=== PATIENT | female | born 1990 | race Caucasian/White ===

== ENCOUNTER 2023-11-06 11:57 | Outpatient (RCR) | payer BC, SELFPAY ==
[2023-11-06 12:49] VITALS: BP 115/71; PULSE 88
== END 2024-02-04 23:59 | disposition home or self-care (01) ==
LOC: ANHOBOP 11:57
PROVIDERS: Visit Provider Obstetrics & Gynecology
DX: O36.8130 Decreased fetal movements, third trimester, not applicable or unspecified (principal); Z3A.29 29 weeks gestation of pregnancy
CPT/HCPCS: 59025

== ENCOUNTER 2023-12-10 20:38 | Observation (INO) | payer BC, SELFPAY ==
--- NOTE | 2023-12-10 20:48 | OBADM ---
This patient, Jorge Medrano, admitted to the OB room OB Post 113 for observation. Patient/family oriented to hospital policies and general routines including ID bracelet, bed and alarms, visiting hours, pain management, procedures, bathroom and other care routines, personal items, smoking policy, room service/diet, and visiting hours. Patient/Family are encouraged to report perceived risks to care and to ask questions if they do not understand what they are told or what they should do.
[2023-12-10 21:15] VITALS: BP 128/76; PULSE 86
--- NOTE | 2023-12-12 11:30 | PM.OBTRLD ---
OB - Triage/Final Diagnosis Visit Information Reason for evaluation: threatened labor Comments/Additional reasons for admission: I have assessed the risk for this patient, Jorge Medrano, and determined that she would benefit from observation care.
== END 2023-12-10 21:26 ==
PROVIDERS: Admitting Provider Obstetrics & Gynecology; Visit Provider Obstetrics & Gynecology
DX: O47.03 False labor before 37 completed weeks of gestation, third trimester (principal); Z3A.34 34 weeks gestation of pregnancy
CPT/HCPCS: G0378; G0379

== ENCOUNTER 2024-01-22 10:50 | Outpatient (CLI) | payer BC, SELFPAY ==
[2024-01-22 11:14] LABS: Hematocrit 36.1 % (37.0-47.0); Hemoglobin 12.3 g/dL (12.0-15.0); Mean Corpuscular HGB Conc 34.1 g/dl (32-36); Mean Corpuscular Hemoglobin 31.5 pg (26-34); Mean Corpuscular Volume 92.6 fl (80-100); Mean Platelet Volume 11.2 fl (7.4-10.4); Platelet Count Result 184 k/mm3 (150-375); Red Cell Distribution Width 14.4 % (11.5-14.5); White Blood Count 14.4 K/mm3 (4.5-10.0)
[2024-01-23 03:42] LABS: Rapid Plasma Reagin Non-Reactive (NonReactive)
== END 2024-01-22 10:51 | disposition home or self-care (01) ==
LOC: ANHLAB 10:53
PROVIDERS: PCP Registered Nurse; Visit Provider Obstetrics & Gynecology
DX: Z01.818 Encounter for other preprocedural examination (principal)
CPT/HCPCS: 36415; 85027; 86592; 86850; 86900; 86901

== ENCOUNTER 2024-01-24 05:32 | Inpatient (IN) | payer BC, SELFPAY ==
--- NOTE | 2024-01-23 22:29 | HP_ITS ---
This report was moved to the correct visit on 01/24/2024. The original report was signed by Tan Simental MD on 01/23/24 [id number]. H&P: HPI History of Present Illness Date/Time: 01/23/24 22:21 Chief Complaint: Large baby Narrative: 33 y/o G1 at 40 6/7 weeks gestation here for primary for suspected macrosomia. EFW on ultrasound 01/21 was 5434 g (12lbs), with cephalic presentation and normal ADOLFO. I have offered her a primary , according to ACOG guidelines. GBS neg. complicated by hypothyroidism, well- controlled, and by obesity. Weight gain in this has been 93 lbs. GCT was normal at 111. She has good movement, and rare contractions. Review of Systems Review of Systems: All systems reviewed & are unremarkable except as noted in HPI and below PMFSH Past Medical History Medical History (Updated 01/23/24 @ 22:27 by Tan Simental MD) History of hypothyroidism Obesity affecting Family History Family History Grandparent Family history of Alzheimer's disease Family history of multiple sclerosis Father Diabetes mellitus Hernia Sibling ADHD Sibling Depression Sibling Schizophrenic disorder Other Family history of alcoholism Family history of lung cancer Social History Social History Smoking status: Former smoker Second hand tobacco smoke exposure: Yes Smoking end date: 11/29/16 Alcohol intake: current Drinks per week: 2 Substance use: never Substance use type: does not use Living arrangements: alone Occupation/Education: occupation Gender identity (if verbalized by the patient): Female Spiritual care concerns: No Meds Home Medications and Allergies Home Medications Medication Instructions Recorded Confirmed Type Complete 1 tab-cap PO DAILY 12/28/23 12/28/23 History ergocalciferol (vitamin D2) 1,000 2,000 unit PO DAILY 12/28/23 12/28/23 History unit capsule levothyroxine 112 mcg tablet 112 mcg PO DAILY 12/28/23 12/28/23 History Allergies Allergy/AdvReac Type Severity Reaction Status Date / Time poison evonne extract Allergy Mild rash Verified 12/28/23 13:30 Exam Const: Orientation/consciousness: patient oriented x3 Other: Well-developed, well-nourished female in no acute distress. Neck: Thyroid: thyroid normal Lymphatic: no lymphadenopathy noted (in neck, axilla or inguinal nodes) Resp: Effort & Inspection: normal respiratory effort Auscultation: clear to auscultation bilaterally Cardio: Rate: regular rate Rhythm: regular rhythm Heart sounds: S1 normal heart sound present and S2 normal heart sound present GI: Other: ABD: Soft, nontender, nondistended, gravid. FHR 150 bpm. FH 46 cm. No guarding or rebound tenderness. No hepatosplenomegaly. : General: Yes no CVA tenderness Other: Cervix fingertip / 50% Back/Spine/Pelvis: Back: no CVA tenderness Skin: General skin exam: normal color and no rashes or lesions noted Neuro: General: patient oriented x3 Extrem: Other: Extremities: nontender with no edema Psych: Mental Status: mental status grossly normal Affect: normal affect Assessment and Plan Assessment and plan (1) Term : Code(s): Z34.90 - Encounter for supervision of normal , unspecified, unspecified trimester Status: Acute Assessment and Plan: A: IUP at 40 6/7 weeks wi
[2024-01-24] VITALS (53 sets, daily range): BP systolic 81–161; BP diastolic 33–104; PULSE 53–173; RESP 14–21; TEMP 36.6–36.9; O2SAT 92–100; BMI 43.9; BMI 47.2
[2024-01-24] MEDS: LACTATED RINGERS 1,000 ML 125 ML IV CONT ×3 (06:00→08:00)
[2024-01-24] MEDS: ACETAMINOPHEN 500 MG TABLET 1000 MG PO (06:25)
[2024-01-24] MEDS: FAMOTIDINE 20 MG/2 ML VIAL IV PUSH (07:11)
[2024-01-24] MEDS: ONDANSETRON INJ 4 MG/2 ML VIAL IV PUSH (07:11)
--- NOTE | 2024-01-24 07:21 | WPDHPUPDATE1 ---
History and Physical Update Update Date/Time: 01/24/24 07:21 History and Physical has been reviewed, including an updated exam of the patient. There are NO changes in the patient's condition. Risks, benefits, and alternatives have been discussed and questions answered. Patient agrees to proceed with procedure.
--- NOTE | 2024-01-24 07:32 | PN_ITS ---
This report was moved to the correct visit on 01/24/2024. The original report was signed by Cj Delatorre DO on 01/24/2432. Anes - Initial Pre Proc Eval Procedure: Operation Date: 01/24/24 07:30 Proposed Procedures p Primary Section - Tan Simental MD Date/Time: 01/24/24 07:30 Surgeon: Tan Simental MD Pre Op Diagnosis: macrosomia, post date Patient Data Age: 33 Gender: F Height: Weight: Allergies Allergy/AdvReac Type Severity Reaction Status Date / Time poison evonne extract Allergy Mild rash Verified 12/28/23 13:30 Home Medications Medication Instructions Recorded Confirmed Type Complete 1 tab-cap PO DAILY 12/28/23 12/28/23 History ergocalciferol (vitamin D2) 1,000 2,000 unit PO DAILY 12/28/23 12/28/23 History unit capsule levothyroxine 112 mcg tablet 112 mcg PO DAILY 12/28/23 12/28/23 History Patient hx anesthesia problems: none Family hx anesthesia problems: none Results Review: All pre-operative results and documents have been reviewed as part of the pre- operative evaluation. [facility] Past Medical History Medical History History of hypothyroidism Obesity affecting Family History Family History Grandparent Family history of Alzheimer's disease Family history of multiple sclerosis Father Diabetes mellitus Hernia Sibling ADHD Sibling Depression Sibling Schizophrenic disorder Other Family history of alcoholism Family history of lung cancer Social History Social History Smoking status: Former smoker Tobacco type: cigarettes and e-cigarettes/vaping Second hand tobacco smoke exposure: Yes Smoking end date: 11/29/16 Alcohol intake: current Drinks per week: 2 Substance use: never Substance use type: does not use Do You Feel Safe in your Home?: Yes Lack of Transportation: No Lack of Food: Never True Current Housing: I Have Housing Concerned About Future Housing: No Difficulty Paying Gas/Electric Bills: No Difficulty Paying for Meds: No Currently Unemployed: No Education: Associate Degree Difficulty w/ Childcare or Family Care: No Living arrangements: alone Occupation/Education: occupation Gender identity (if verbalized by the patient): Female Spiritual care concerns: No Anes - Eval Final PreProcedure Day of Procedure 01/24/24 07:30 Patient weight: obese Heart: regular rate and rhythm Lungs: clear to auscultation Airway: Mallampati scale class II Neurological: alert and oriented Last oral intake: >/= 8 hours ASA classification: III Emergent: no Anesthetic plan: proceed Anesthesia type and monitoring: regional spinal Results Review: All pre-operative results and documents have been reviewed as part of the pre- operative evaluation. Hypothyroidism, obesity w . Prev smoker, vaper, quit several years ago. Informed Consent: The patient's anesthetic plan and its attendant risks and benefits were discussed with the patient/family/POA. Questions were solicited and answers provided to the satisfaction of the patient/family/POA. This report may have been done utilizing a voice recognition system. Attempts have been made to correct errors. However, there may be uncorrected grammatical, spelling, and recognition errors present. Report Initialized date/time: Cj Delatorre DO 01/24/24 /
[2024-01-24] MEDS: ceFAZolin 3 GM/D5W 100 ML 100 ML IVPB (07:34)
[2024-01-24 08:17] LABS: HIV 1/2 Ab P24 Ag Result Negative (Negative)
--- NOTE | 2024-01-24 08:41 | P.PCNOB_ITS ---
OB - Delivery Note Procedure Delivery date: 01/24/24 Pre-op diagnosis: Macrosomia Post-op Diagnosis: Same Induction method: None Delivery monitor: External FHT and External Uterine Procedure Performed: Primary Surgeon: Tan Simental MD Anesthesia type: Spinal Description of Procedure/Findings: Findings: Normal-appearing uterus, tubes and ovaries. Techniques: The patient was taken to the operating room where she was prepared and draped in the usual sterile fashion in dorsal supine position with a leftward tilt. She received cefazolin preoperatively. Spinal anesthesia was found to be adequate. A Pfannenstiel skin incision was made and carried through to the underlying layer of the fascia. The fascia was incised in the midline and the incision was extended laterally. The fascia was dissected free of the underlying rectus muscles. The rectus muscles were in the midline. The peritoneum was identified, tented up and entered sharply. The peritoneal incision was extended superiorly and inferiorly with good visualization of the bladder. The bladder blade was placed. The vesicouterine peritoneum was identified, tented up and entered sharply. The incision was extended laterally and the bladder flap was developed. The bladder blade was replaced. The uterus was then incised sharply in a transverse fashion along the lower uterine segment. The incision was extended laterally. The 's head was delivered atraumatically to the sterile field, followed by the body. The nose and mouth were bulb suctioned. After a delay, the cord was clamped and cut. The infant was handed off the field. Cord blood was collected. The placenta was removed manually and was passed off the field. The uterus was exteriorized and cleared of all clots and debris. The uterine incision was reapproximated using 0 Monocryl in a running, locked fashion. A second, imbricating layer of the same suture was run. Excellent hemostasis resulted as did excellent reapproximation of the normal anatomy. The uterus was returned the abdomen. The pelvis was ir rigated copiously with warmed normal saline. Rigorous hemostasis was assured. The fascial layer was reapproximated using 0 Vicryl in a running fashion. The skin was closed with a running, subcuticular stitch of 4 0 Vicryl. Dermaflex was applied externally. Sponge, lap, needle and instrument counts were correct. The patient was taken to the recovery room in stable condition. The infant went to the nursery in stable condition. I was present and scrubbed the entire procedure. Specimen: Yes (cord blood) Estimated Blood Loss: 455 Drains: Yes ([place]) Packing: No Pathology: Yes (Cord blood) Complications: None Condition: Stable Disposition: PACU Baby Date of : 01/24/24 Time of : 08:04 Weeks of gestation at delivery: 40 gender: Female Weight (pounds): 11 Weight (ounces): 15 presentation: vertex Placenta delivery description: Manual Removal and Normal Configuration Cord Vessel Description: 3 Vessels and Delayed Cord Clamping score one minute: 8 score five minutes: 9
--- NOTE | 2024-01-24 08:44 | PM.OBDSVD ---
DS: Admitting Diagnosis Discharge Date 01/27/24 Admitting Diagnosis IUP at 40 6/7 weeks Suspected macrosomia DS: Discharge Diagnosis Discharge Diagnosis (1) delivery delivered: Code(s): O82 - Encounter for delivery without indication Status: Acute (2) Macrosomia affecting management of mother in third trimester: Code(s): O36.63X0 - Maternal care for excessive growth, third trimester, not applicable or unspecified Status: Acute OB - DS: Summary OB Procedures : NST OB Procedures Intrapartum: OB Procedures: : None Time Spent with Patient Time attestation: Total time spent providing and/or coordinating discharge services: DS: Data Data Completed and Pending Labs on day of discharge: Labs from last 24 hours 01/24/24 06:58 HIV 1&2 Ab/P24 Ag 4thGn Negative Discharge Plan Discharge Attending physician on discharge: Tan Simental Discharging Clinician: Tan Simental Patient Disposition: Home, Self-Care Activity: may shower, may drive after 2 weeks and pelvic rest Diet: regular Wound Care Instructions: incision open to air Discharge Instructions: Call or return if temperature above 100.4? F, increased abdominal pain, increased vaginal bleeding or any new problems. Stand Alone Forms: General Discharge Information Follow-up/Referrals: Tan Simental MD [Physician] - 4 Weeks Discharge Medications: New ibuprofen 600 mg tablet 600 mg PO Q6H PRN (Reason: cramps) Qty: 30 0RF hydrocodone-acetaminophen 5-325 mg tablet 1 - 2 tablet PO Q6H PRN (Reason: pain) Qty: 30 0RF Continued levothyroxine 112 mcg tablet 112 mcg PO DAILY Complete 1 tab-cap PO DAILY Vitamin D2 1,000 unit Capsule 2,000 unit PO DAILY Date of admission: 01/24/24 05:32 Primary Care Provider: Pham,Angelia Admitting Provider: Tan Simental Attending physician on admission: Tan Simental Condition: Stable
--- NOTE | 2024-01-24 09:02 | PC.NURSE ---
FHT obtained in OR after spinal placement. FHT 140 at 0743. Proceeded to prep pt in routine fashion.
[2024-01-24] MEDS: OXYTOCIN 30 UNITS/NS 500 ML 30 UNITS/500 ML BAG 125 UNITS IV CONT (09:55)
--- NOTE | 2024-01-24 10:25 | LDADM ---
This patient, Jorge Medrano, was admitted to Labor/Delivery/Recovery 120 on 01/24/24 at 05:32. Plans for labor, pain management and were discussed with patient. Patient/family oriented to hospital policies and general routines including ID bracelet, bed and alarms, visiting hours, pain management, procedures, bathroom and other care routines, personal items, smoking policy, room service/diet and guest tray routines, security routines, and visiting hours. Patient/Family are encouraged to report perceived risks to care and to ask questions if they do not understand what they are told or what they should do. See OBIX for further documentation.
[2024-01-24] MEDS: diphenhydrAMINE HCl INJ 50 MG/ML VIAL 25 MG IV PUSH (10:42)
--- NOTE | 2024-01-24 11:15 | OBPPTRN ---
Patient transferred to post room # 282 via stretcher. Support person present. Oriented to unit, room, information board, rooming in, admission packet and security measures. Patient verbalizes understanding.
[2024-01-24] MEDS: SIMETHICONE 80 MG TAB.CHEW PO ×2 (12:20→17:44)
[2024-01-24] MEDS: ACETAMINOPHEN 325 MG TABLET 650 MG PO ×2 (12:21→18:42)
[2024-01-24] MEDS: DOCUSATE SODIUM 100 MG CAPSULE PO ×2 (12:21→17:44)
[2024-01-24] MEDS: KETOROLAC 15 MG/ML VIAL (*BKC) IV PUSH ×2 (12:22→18:42)
[2024-01-24] MEDS: DEXTROSE 5%/0.45% SOD CHL 1,000 ML 125 ML IV CONT (14:05)
[2024-01-24] MEDS: diphenhydrAMINE HCl CAP 25 MG CAPSULE PO (20:40)
[2024-01-24] MEDS: HYDROcodone/acetaminophen (*CRX) 5-325 MG TABLET 1 TAB PO (22:32)
[2024-01-25 00:20] VITALS: BP 122/75; PULSE 80; RESP 18; TEMP 36.9; O2SAT 100
[2024-01-25] MEDS: KETOROLAC 15 MG/ML VIAL (*BKC) IV PUSH ×2 (00:40→06:56)
[2024-01-25] MEDS: ACETAMINOPHEN 325 MG TABLET 650 MG PO ×3 (00:40→13:03)
[2024-01-25] MEDS: diphenhydrAMINE HCl CAP 25 MG CAPSULE PO (04:05)
[2024-01-25] MEDS: HYDROcodone/acetaminophen (*CRX) 5-325 MG TABLET 1 TAB PO (04:05)
[2024-01-25 05:11] LABS: Basophils Absolute Auto 0.1 K/mm3 (0.0-0.1); Basophils Percent Auto 0.4 % (0.2-1.2); Eosinophils Absolute Auto 0.1 K/mm3 (0-0.3); Eosinophils Percent Auto 0.5 % (0-4.4); Hematocrit 31.5 % (37.0-47.0); Hemoglobin 10.2 g/dL (12.0-15.0); Immature Granulocyte Absolute 0.22 K/mm3 (0.00-0.031); Immature Granulocyte Percent A 1.7 % (0-0.5); Lymphocytes Percent Auto 15.6 % (18.3-44.2); Mean Corpuscular HGB Conc 32.4 g/dl (32-36); Mean Corpuscular Hemoglobin 31.1 pg (26-34); Mean Platelet Volume 11.8 fl (7.4-10.4); Monocytes Percent Auto 7.6 % (2.6-8.5); Neutrophils Absolute Auto 9.5 K/mm3 (1.3-6.7); Neutrophils Percent Auto 74.2 % (45.5-73.1); Platelet Count Result 158 k/mm3 (150-375); Red Blood Count 3.28 M/mm3 (4.2-5.4); Red Cell Distribution Width 14.9 % (11.5-14.5); White Blood Count 12.8 K/mm3 (4.5-10.0)
[2024-01-25 06:50] VITALS: BP 127/74; PULSE 86; RESP 16; TEMP 36.2
[2024-01-25] MEDS: LEVOTHYROXINE SODIUM 112 MCG TABLET PO (06:55)
[2024-01-25] MEDS: MULTIVIT/MIN/PREN/FOL AC/IRON TABLET 1 TAB PO (06:55)
[2024-01-25] MEDS: SIMETHICONE 80 MG TAB.CHEW PO ×3 (06:55→18:52)
[2024-01-25] MEDS: DOCUSATE SODIUM 100 MG CAPSULE PO ×2 (06:55→18:51)
[2024-01-25] MEDS: HYDROcodone/acetaminophen (*CRX) 10-325 MG TABLET 1 TAB PO ×3 (06:56→18:51)
[2024-01-25] MEDS: LIDOCAINE 5% PATCH 1 PATCH TRANSDERM (07:05)
--- NOTE | 2024-01-25 09:45 | PC.NURSE ---
Consulted with patient to assess needs related to . Discussed with mother her successes, concerns and any questions she has. We reviewed working with the infant, supporting breast, protecting her nipples with an optimal deep latch, good positioning. Encouraged understanding the benefits of skin to skin, responding to feeding cues, frequencies of feeding 8-12 times in 24 hours (approximately 2-3 hours), duration of feedings, milk production (mother reassured colostrum in small amounts is very normal), intake/output feeding sheet and signs of adequate intake. Reviewed positioning and alignment, supporting breast, off-centered (asymmetrical latch) and leading with the chin with big, open, wide gape. latched optimally to the [left] breast in [football] position. Education given to the mother of how to visualize the suckling (with good rocking jaw motion) swallows (dropping of the lower jaw) and how to listen for drinking at the breast (the ka sound). The infant was [able] to maintain latch without discomfort to mother. Nipple care reviewed with optimal latch, good positioning. was sleepy after about 10 minutes. Encouraged mother to pump after feedings as needed if infant doesn't effectively breastfeed. We also discussed needing to supplement if infant doesn't eat vs. supplementing if doesn't seem satisfied after . Mother voiced understanding of the education shared, to call for assistance if the infant does not latch or if there is discomfort with . Reported to the Primary RN.
--- NOTE | 2024-01-25 10:24 | WPDANLDPN2 ---
Anes-Prog Note L&D Date/Time: 01/25/24 10:24 Comfortable throughout: section Neuraxial method: spinal Epidural/Spinal procedure site: clean & non-tender Neuro status: Neuro function grossly intact. Cardiovascular status: normal Respiratory status: normal Airway patency: baseline Mental status: baseline Post-Op hydration status: normal Vital Signs: Last Vital Signs Temp 36.2 C L 01/25/24 06:50 Pulse 86 01/25/24 06:50 Resp 16 01/25/24 06:50 BP 127/74 01/25/24 06:50 Pulse Ox 100 01/25/24 00:20 O2 Del Method Room Air 01/25/24 00:20 Pain score (VAS): 3 I/O: Intake & Output 01/24/24 01/25/24 01/25/24 23:59 07:59 15:59 Intake Total 1900 500 Output Total 900 1300 Balance 1000 -800 Post-procedural complaints: none Patient feedback: Patient satisfied with anesthetic care.
--- NOTE | 2024-01-25 10:24 | WPDANLDNPN2 ---
Anes-Prog Note L&D-Neuraxial Date/Time: 01/25/24 10:24 Neuraxial medications: intrathecal PF morphine Opiod-related complaints: none Patient feedback: Patient satisfied with post-operative pain management.
--- NOTE | 2024-01-25 10:34 | P.PNOB_ITS ---
OB - PN: Subj Subjective Date/time seen: 01/25/24 10:34 Narrative: Pain OK. Tolerating diet. OB - PN: Obj Data Labs 01/25/24 04:05 Labs: Laboratory Results - last 24 hr 01/25/24 04:05 WBC 12.8 H RBC 3.28 L Hgb 10.2 L Hct 31.5 L MCV 96.0 MCH 31.1 MCHC 32.4 RDW 14.9 H Plt Count 158 MPV 11.8 H Immature Gran % (Auto) 1.7 H Neut % (Auto) 74.2 H Lymph % (Auto) 15.6 L [place] % (Auto) 7.6 Eos % (Auto) 0.5 Baso % (Auto) 0.4 Lymph # (Auto) 2.00 [place] # (Auto) 1.0 H Eos # (Auto) 0.1 Baso # (Auto) 0.1 Abs Immat Gran (auto) 0.22 H Absolute Neuts (auto) 9.5 H Absolute Nucleated RBC 0.000 Nucleated RBC % 0.0 OB - PN A/P Plan day: 1 Comments: A: POD#1, doing well. P: Routine care. Exam Narrative: AVSS I/O OK ABD soft, nontender, fundus firm. Incision c/d/i. EXT nontender
--- NOTE | 2024-01-25 11:40 | PC.NURSE ---
Called to patient room to assist with feeding. Mother is feeling frustrated because baby is crying. She fed formula about an hour ago. Discussed feeding on demand if seems hungry, it's always ok to put baby to breast. Assisted mother to get baby positioned in football hold on the right breast. Baby latched and suckled a few times but didn't show much interest in feeding. We talked about baby wanting to comfort, sucking is a soothing reflex, and sometimes baby wants to be close to mom. Mom is happy to allow baby to stay close to the breast and offer the nipple if baby wants to feed. If not, mom and baby can just snuggle. Mom agrees to call out when baby is ready to feed again.
[2024-01-25] MEDS: IBUPROFEN 600 MG TABLET PO ×2 (13:03→18:51)
[2024-01-25 18:55] VITALS: BP 141/91; PULSE 93; RESP 16; TEMP 36.6
[2024-01-26] MEDS: SIMETHICONE 80 MG TAB.CHEW PO ×4 (00:13→16:33)
[2024-01-26] MEDS: HYDROcodone/acetaminophen (*CRX) 5-325 MG TABLET 1 TAB PO ×4 (00:13→23:47)
[2024-01-26] MEDS: HYDROcodone/acetaminophen (*CRX) 10-325 MG TABLET 1 TAB PO ×4 (03:17→21:05)
[2024-01-26] MEDS: IBUPROFEN 600 MG TABLET PO ×4 (03:17→21:05)
[2024-01-26] MEDS: LEVOTHYROXINE SODIUM 112 MCG TABLET PO (06:51)
[2024-01-26] MEDS: LIDOCAINE 5% PATCH 1 PATCH TRANSDERM (06:52)
--- NOTE | 2024-01-26 09:19 | PM.OBPNVD ---
OB - PN: Subj Subjective Date/time seen: 01/26/24 09:19 Narrative: Pain OK. Tolerating diet. OB - PN: Obj Data Labs 01/25/24 04:05 OB - PN A/P Plan day: 2 Comments: A: POD#2, doing well. P: Routine care. Probably home tomorrow. Exam Narrative: AVSS I/O OK ABD soft, nontender, fundus firm. Incision c/d/i. EXT nontender
[2024-01-26 09:30] VITALS: BP 139/96; PULSE 102; RESP 16; TEMP 37; O2SAT 97
[2024-01-26] MEDS: MULTIVIT/MIN/PREN/FOL AC/IRON TABLET 1 TAB PO (09:39)
[2024-01-26] MEDS: LANOLIN (LANSINOH) 7.5 GM CREAM 1 APPLIC TOPICAL (09:39)
[2024-01-26] MEDS: DOCUSATE SODIUM 100 MG CAPSULE PO ×2 (09:39→16:33)
[2024-01-26 10:30] VITALS: BP 138/82; PULSE 95
--- NOTE | 2024-01-26 15:00 | PC.NURSE ---
Patient viewed the discharge video Mother & Baby Care, The First Two Weeks . Patient was given the opportunity and encouraged to ask questions. Patient verbalized understanding of information shared and has been given the mother/baby guide for home reference.
[2024-01-26 19:20] VITALS: BP 135/89; PULSE 86; RESP 16; TEMP 36.2; O2SAT 99
[2024-01-27] MEDS: HYDROcodone/acetaminophen (*CRX) 5-325 MG TABLET 1 TAB PO ×2 (04:07→07:15)
[2024-01-27] MEDS: IBUPROFEN 600 MG TABLET PO ×2 (04:07→10:13)
[2024-01-27] MEDS: SIMETHICONE 80 MG TAB.CHEW PO (07:14)
[2024-01-27] MEDS: LIDOCAINE 5% PATCH 1 PATCH TRANSDERM (07:14)
[2024-01-27 07:55] VITALS: BP 130/86; PULSE 83; RESP 18; TEMP 36.9; O2SAT 99
--- NOTE | 2024-01-27 08:52 | PM.OBPNVD ---
OB - PN: Subj Subjective Date/time seen: 01/27/24 08:52 Narrative: Pain OK. Tolerating diet. Would like to go home. OB - PN: Obj Data Labs 01/25/24 04:05 OB - PN A/P Plan day: 3 Comments: A: POD#3, doing well. P: Home to f/u 4 weeks. Exam Narrative: AVSS ABD soft, nontender, fundus firm. Incision c/d/i. EXT nontender
[2024-01-27] MEDS: MULTIVIT/MIN/PREN/FOL AC/IRON TABLET 1 TAB PO (10:12)
[2024-01-27] MEDS: DOCUSATE SODIUM 100 MG CAPSULE PO (10:12)
[2024-01-27] MEDS: HYDROcodone/acetaminophen (*CRX) 10-325 MG TABLET 1 TAB PO (10:13)
--- NOTE | 2024-01-27 11:05 | PC.NURSE ---
0815. Consulted with mother concerning needs and she shared her ability to independently latch infant optimally without pain. Mother is feeding appropriately for growth of infant and understands stimulating infant to eat if needed. Infant has had appropriate feedings in the last 24 hours meets the outcomes for weight, output, blood sugar and jaundice at this time. Mother is currently pumping and supplementing baby with formula after. Per mom her preference would be to transition back to the breast when her full volume milk comes in. Discussed with mom the benefits of practicing and offering the breast with baby now and topping baby up with formula after if she is not able to breast feed for at least 10-15 min. Measured mom's nipples to ensure the correct flange size was being used with pumping. Mom's nipple size measured 17-18mm; recommended mom use a size 21 flange after mom demonstrating with a 21mm and 24mm flanges. Mom reported no pain with the size 21 flange, and mom was able to pump 4 ml of colostrum. Reinforced understanding of milk production, transition of milk, signs of adequate intake, transition of stool, prevention/relief of engorgement, plugged ducts, mastitis, responsive watching for feeding cues, the different methods of stimulating to breastfeed 1-3 hours after the start of the last feeding, community resources, and when to call a provider using the resource of the feeding sheet along with the mom and baby guide. Mother voiced understanding of the information shared, is confident to continue effectively her infant at home, when to call for assistance, denies any additional assistance or education at this time. Reported to the Primary RN.
[2024-01-28 10:17] VITALS: BP 137/86; PULSE 82; RESP 18; TEMP 36.7; O2SAT 100
== END 2024-01-27 12:55 | disposition home or self-care (01) | DRG 788 ==
LOC: ANHLDR 08:45 → ANHOB2 12:01
PROVIDERS: Admitting Provider Obstetrics & Gynecology; Visit Provider Obstetrics & Gynecology
PROC: 10D00Z1 Extraction of Products of Conception, Low, Open Approach (ICD-10-PCS; CPT 59514; principal; 2024-01-24 07:30)
DX: O36.63X0 Maternal care for excessive fetal growth, third trimester, not applicable or unspecified (principal); Z37.0 Single live birth; Z3A.40 40 weeks gestation of pregnancy; O99.284 Endocrine, nutritional and metabolic diseases complicating childbirth; E03.9 Hypothyroidism, unspecified; O99.214 Obesity complicating childbirth; E66.9 Obesity, unspecified
CPT/HCPCS: 36415; 85025; 86703; A9270; G0432; J0690; J1200; J1596; J1885; J2274; J2371; J2405; J2590; J7120